=== PATIENT | female | born 1960 | race Caucasian/White ===

== ENCOUNTER 2023-01-05 18:05 | Emergency (ER) | payer BC ==
[2023-01-05] MEDS ORDERED: Ketorolac Tromethamine 30 MG/ML VIAL ONE (18:31)
[2023-01-05 18:55] LABS: Bilirubin Negative (Negative); Blood, Urine Small (Negative); Clarity Cloudy (Clear); Glucose, Urine (Dipstick) Negative (Negative); Ketone, Urine Negative (Negative); Leukocyte Moderate (Negative); Nitrite Negative (Negative); Protein, Urine (Dipstick) Trace mg/dL (Neg-Trace)
[2023-01-05 19:03] LABS: Bacteria/HPF Rare-Few HPF (None Seen); CAUTI Indications for Culture Dysuria,urgency,freq; WBC/HPF 21-50 HPF (0-3)
[2023-01-05 19:05] LABS: Urine Culture Reflex Yes Yes
[2023-01-05] MEDS ORDERED: Ciprofloxacin 500 MG TAB ONE (19:10)
[2023-01-05] MEDS ORDERED: Phenazopyridine HCl 95 MG TAB ONE (19:10)
== END 2023-01-05 19:20 | disposition home or self-care (01) ==
LOC: BURERS 18:05
DX: N39.0 Urinary tract infection, site not specified (principal); I10 Essential (primary) hypertension; E03.9 Hypothyroidism, unspecified; M81.0 Age-related osteoporosis without current pathological fracture; G47.00 Insomnia, unspecified; Z86.16 Personal history of COVID-19; Z95.5 Presence of coronary angioplasty implant and graft
CPT/HCPCS: 81001; 87086; 96372; 99283; J1885